=== PATIENT | female | born 1980 | race Caucasian/White ===

== ENCOUNTER 2025-01-01 10:08 | Outpatient (CLI) | payer OTHER, SELFPAY ==
--- NOTE | 2025-01-01 10:15 | CRLHL7_ITS ---
For Patients: As a result of the Century Cures Act, medical imaging exams and procedure reports are released immediately into your electronic medical record. You may view this report before your referring provider. If you have questions, please contact your health care provider. INDICATION : Right thyroid nodule. TECHNIQUE : Ultrasound-guided fine needle aspiration of thyroid nodule. COMPARISON : Outside ultrasound 12/23/2024 FINDINGS : PROCEDURE: After the informed consent and time-out, multiple fine needle aspirations were obtained from the thyroid nodule. Fine needle performed. 25 gauge needles were used. Lidocaine was used for local anesthesia. The preliminary cytology was adequate for interpretation. Real-time imaging was used for guidance and needle placement. Post imaging ultrasound demonstrates no immediate complication. IMPRESSION : Successful fine needle aspiration of right thyroid nodule. Dictated by James Escoto MD @ 01/01/2025 1:03:54 PM (Electronically Signed)
== END 2025-01-01 10:09 | disposition home or self-care (01) ==
LOC: US 10:11
PROVIDERS: PCP Student in an Organized Health Care Education/Training Program; Visit Provider Student in an Organized Health Care Education/Training Program
DX: E04.1 Nontoxic single thyroid nodule (principal)
CPT/HCPCS: 10005; 76942; 88173